=== PATIENT | female | born 1960 | race Caucasian/White ===

== ENCOUNTER 2019-06-07 06:17 | Day surgery (SDC) ==
[2019-05-31 09:52] LABS: URINE SOURCE CLEAN CATCH
--- NOTE | 2019-05-31 09:53 | EKG Report ---
Test Performed on : 05/31/2019 09:32:17 AM Test Reason : PAT Blood Pressure : / mmHG Vent. Rate : 069 BPM Atrial Rate : 069 BPM P-R Int : 116 ms QRS Dur : 088 ms QT Int : 380 ms P-R-T Axes : 036 051 -10 degrees QTc Int : 407 ms Normal sinus rhythm. Low voltage QRS Nonspecific T wave abnormality Abnormal ECG When compared with ECG of 18-AUG-2017 09:25, No significant change was found Confirmed by Lore Figueroa MD ([id number]) on 05/31/2019 12:42:11 PM
[2019-05-31 10:29] LABS: BILIRUBIN URINE NEGATIVE (NEGATIVE); BLOOD URINE TRACE (NEGATIVE); COLOR STRAW; GLUCOSE URINE NEGATIVE (NEGATIVE); KETONE URINE NEGATIVE (NEGATIVE); LEUKOCYTES URINE NEGATIVE (NEGATIVE); NITRITE URINE NEGATIVE (NEGATIVE); PROTEIN URINE NEGATIVE (NEGATIVE); SP GRAVITY URINE 1.006; TURBIDITY URINE CLEAR (CLEAR); UR EPITHELIAL CELLS <10 /HPF (<10); URINE BACTERIA NEGATIVE /HPF; URINE RBC <10 /HPF (<10); URINE WBC <10 /HPF (<10); UROBILINOGEN URINE NORMAL (NORMAL)
[2019-05-31 10:32] LABS: BASO# 0.03 X1000 (0.0-0.2); BASO% 0.4 % (0.0-0.8); EOS# 0.26 X1000 (0.0-0.7); EOS% 3.7 % (0.0-10.0); HEMATOCRIT 44.8 % (37.0-47.0); HEMOGLOBIN 15.1 g/dL (12.0-16.0); INR 0.91; LYMPH# 2.73 X1000 (1.2-3.4); LYMPH% 38.8 % (20.5-51.1); MCH 31.7 PG (27-31); MCHC 33.7 g/dL (33-37); MCV 94.1 FL (81-99); MONO# 0.49 X1000 (0.11-0.59); MPV 11.2 FL (7.4-10.4); NEUT# 3.53 X1000 (1.4-6.5); NEUT% 50.1 % (42.2-75.2); PLT 252 X1000 (130-400); PROTIME 12.3 Seconds (11.0-16.0); RBC 4.76 XMIL (4.2-5.4); RDW 14.2 % (11.5-14.5); WBC 7.04 X1000 (4.8-10.8)
[2019-05-31 10:33] LABS: PTT 27.1 Seconds (22.3-41.8)
[2019-05-31 10:34] LABS: HEMOGLOBIN A1C 5.4 % (4.8-6.0)
[2019-05-31 10:43] LABS: AGAP 13; BUN 13 mg/dL (8-22); CALCIUM 9.9 mg/dL (8.8-10.2); CHLORIDE 104 mmol/L (98-107); COSMO 288; CREATININE 0.6 mg/dL (0.5-0.9); ESTIMATED GFR > 60; GLUCOSE 83 mg/dL (70-104); POTASSIUM 3.8 mmol/L (3.5-5.1); SODIUM 145 mmol/L (136-145); TCO2 28 mmol/L (25-35)
[2019-06-07] MEDS ORDERED: SODIUM CHLORIDE 0.9% ONE (06:37)
[2019-06-07] MEDS ORDERED: MARCAINE 0.25% PF ONE (06:37)
[2019-06-07] MEDS ORDERED: CYKLOKAPRON 1,000 MG/NS 2,000 MG/200 ML IVPB ONE (06:37)
[2019-06-07] MEDS ORDERED: TORADOL ONE (06:37)
[2019-06-07] MEDS ORDERED: DURAMORPH ONE (06:37)
[2019-06-07] MEDS ORDERED: VANCOMYCIN ONE (06:37)
[2019-06-07] MEDS ORDERED: EXPAREL 1.3% ONE (06:38)
[2019-06-07] MEDS ORDERED: NEOSPORIN G.U. IRRIGANT ONE (06:38)
[2019-06-07] MEDS ORDERED: COLACE ONE (06:44)
[2019-06-07] MEDS ORDERED: REGLAN ONE (06:45)
[2019-06-07] MEDS ORDERED: LR 1,000 ML ONE (06:45)
[2019-06-07] MEDS ORDERED: KEFZOL 1 GM/D5W 1 GM/50 ML IVPB ONE (06:45)
[2019-06-07] MEDS ORDERED: CELEBREX ONE (06:45)
[2019-06-07] MEDS ORDERED: PEPCID ONE (06:45)
[2019-06-07] MEDS ORDERED: LYRICA ONE (06:45)
[2019-06-07] MEDS ORDERED: XYLOCAINE-MPF 2% ONE (07:50)
[2019-06-07] MEDS ORDERED: DECADRON ONE ×2 (07:50→09:10)
[2019-06-07] MEDS ORDERED: DIPRIVAN 1% ONE (07:50)
[2019-06-07] MEDS ORDERED: ZOFRAN ONE (07:50)
[2019-06-07] MEDS ORDERED: FENTANYL ONE ×2 (07:54→10:09)
[2019-06-07] MEDS ORDERED: VERSED ONE (08:00)
[2019-06-07] MEDS ORDERED: OFIRMEV 1000 MG/ISOTONIC SOLN 1,000 MG/100 ML BOTTLE ONE (09:10)
[2019-06-07] MEDS ORDERED: ROBINUL ONE (09:35)
[2019-06-07] MEDS ORDERED: LOPRESSOR ONE (10:30)
[2019-06-07 10:34] LABS: URINE SOURCE CATH
[2019-06-07 10:37] LABS: BILIRUBIN URINE NEGATIVE (NEGATIVE); BLOOD URINE NEGATIVE (NEGATIVE); COLOR YELLOW; GLUCOSE URINE NEGATIVE (NEGATIVE); KETONE URINE NEGATIVE (NEGATIVE); LEUKOCYTES URINE NEGATIVE (NEGATIVE); NITRITE URINE NEGATIVE (NEGATIVE); PROTEIN URINE NEGATIVE (NEGATIVE); SP GRAVITY URINE 1.021; TURBIDITY URINE CLEAR (CLEAR); UROBILINOGEN URINE NORMAL (NORMAL)
[2019-06-07 10:38] LABS: UR EPITHELIAL CELLS <10 /HPF (<10); URINE BACTERIA NEGATIVE /HPF; URINE RBC <10 /HPF (<10); URINE WBC <10 /HPF (<10)
[2019-06-07] MEDS ORDERED: OXY IR PO PRN (12:30)
[2019-06-07] MEDS ORDERED: ZOFRAN ODT PO PRN (12:30)
[2019-06-07] MEDS ORDERED: ZOFRAN IV PRN (12:30)
[2019-06-07] MEDS ORDERED: MORPHINE IV PRN ×3 (12:30)
[2019-06-07] MEDS: DILAUDID ONE ×3 (12:31→12:50)
[2019-06-07] MEDS ORDERED: NS 1,000 ML ONE (12:31)
[2019-06-07] MEDS ORDERED: OXY IR ONE (13:06)
--- NOTE | 2019-06-07 13:11 | OPERATIVE NOTE ---
PROCEDURE DATE: 06/07/2019 PREOPERATIVE DIAGNOSIS: Left unicompartmental total knee arthroplasty failure with degenerative joint disease of the lateral and patellofemoral compartments. POSTOPERATIVE DIAGNOSIS: Left unicompartmental total knee arthroplasty failure with degenerative joint disease of the lateral and patellofemoral compartments. PROCEDURE: Revision of left unicompartmental knee to a total knee arthroplasty. ANESTHESIA: General. SURGEON: Venancio Cheng MD EMERGENCY MANAGEMENT SPECIALIST: MAXIMO Voss, was present throughout the case, and his assistance was necessary for successful completion of the case. BLOOD LOSS: Minimal. TOURNIQUET TIME: Approximately an hour and a half. DESCRIPTION OF PROCEDURE: The patient brought to the operative suite and placed in supine position. After successful administration of general anesthesia, a well-padded tourniquet was placed on the left proximal thigh and the left lower extremity was prepped and draped in the usual sterile fashion. Leg was exsanguinated. Tourniquet insufflated to 350 torr. A longitudinal incision was made beginning superior pole of the patella and extended distally to the tibial tuberosity. A medial capsulotomy was performed, removing the previous sutures, and the medial capsule was elevated off the medial tibial plateau. The scar tissue deep to the patellar tendon was removed, as well as along the medial border, and then the knee was flexed. The lateral meniscus and ACL and PCL were excised. A drill was entered into the center of the femur. A distal cutting block was pinned in place. Distal cut was made with the oscillating saw except for where the medial unicondylar knee was. This was sawed by hand and with osteotome. Once it was removed, the distal end of the femur was recut to flush with the lateral side at 6 degrees of valgus angle. Once this was accomplished, attention was directed to the tibia. The saw was used along the edges of the prosthesis and then osteotomes until we were able to remove the medial prosthesis and then the extramedullary guide was placed and taking just 1 mm so off the medial side. The tibial cutting block was pinned in place and the lateral condyle and the medial condyle were smoothed with a saw back to flat perpendicular proximal tibia. Once this was achieved, we made sure that all the ACL, PCL, medial meniscus, and lateral meniscus tissues were excised. The extension gap was found to be 12. Therefore, we set the flexion gap at 12. The femur sized to a size 4. Therefore, we used a 4 sizing guide. Once we set the rotation by balancing the gaps and flexion at 90 degrees, we were able to pin the cutting block and then the anterior cuts, chamfer cuts, and posterior condylar cuts were made with the oscillating saw. The box cutting block was pinned in place. Box cut was made with the oscillating saw and then the posterior condyle osteophytes were removed with the curved osteotome and a rongeur. Attention was then directed to the tibia. It was sized to a size 4. A size 4 guide was used for the fin punch. The tibial trial, femoral trial, and 12 mm articular insert were placed, taken through range of motion, and found to have excellent alignment, balancing, and range of motion. Attention was directed to the patella and 9 mm of the articular surface of patella was removed with the oscillating saw. Patella was sized to size 35. A size 35 guide was used to drill peg holes. The lateral facet was chamfered 30 to 45 degrees. Patellar trial was placed, taken through range of motion, and found to have excellent patellar tracking. All trials were then removed. The knee was copiously irrigated and dried, being certain that all bone debris was removed. The tibial component, femoral component, and patellar component were cemented into place, excess cement being removed with a Masury. Once the cement had hardened, excess cement was again removed with an osteotome. Knee was again copiously irrigated and dried, being certain all bone and cement debris was removed. The trial articular insert was removed. The knee was copiously infiltrated with Exparel, including the posterior capsule, anterior capsule, medial and lateral collateral ligaments, anterior musculature, and subcutaneous tissue. The tourniquet was deflated. Hemostasis was obtained with electrocautery. The definitive 12 mm articular insert was placed. A drain was placed exiting superolaterally and buried in the lateral gutter. The knee was again copiously irrigated with normal saline containing irrigant and Vashe irrigation. The medial arthrotomy was closed with #1 Vicryl. The skin edge was approximated with 2-0 Vicryl. Skin was closed with Prineo and a sterile dressing was applied. The patient tolerated the procedure well without complication. At the end the procedure, all counts were correct x2. The patient was transferred to the recovery room in stable condition. cc: Venancio Cheng MD
[2019-06-07] MEDS: TYLENOL PO SCH ×2 (18:05→21:50)
[2019-06-07] MEDS: ULTRAM PO SCH ×2 (18:05→21:48)
[2019-06-07] MEDS: KEFZOL 1 GM/D5W 1 GM/50 ML IVPB IV SCH (18:08)
[2019-06-07] MEDS ORDERED: ZANTAC PO SCH (21:00)
[2019-06-07] MEDS ORDERED: PAXIL PO SCH (21:00)
[2019-06-07] MEDS: PERIDEX MT SCH (21:48)
[2019-06-07] MEDS: LOPID PO SCH (21:49)
[2019-06-07] MEDS: LYRICA PO SCH (21:50)
[2019-06-07] MEDS: COLACE PO SCH (21:50)
[2019-06-07] MEDS: NS 1,000 ML IV SCH (21:51)
[2019-06-07] MEDS: OXY IR PO PRN (23:46)
[2019-06-08] MEDS: KEFZOL 1 GM/D5W 1 GM/50 ML IVPB IV SCH (02:25)
[2019-06-08] MEDS: NS 1,000 ML IV SCH (02:26)
[2019-06-08] MEDS: TYLENOL PO SCH ×2 (03:45→10:51)
[2019-06-08] MEDS: ULTRAM PO SCH ×2 (03:46→10:48)
[2019-06-08 06:13] LABS: HEMATOCRIT 31.7 % (37.0-47.0); HEMOGLOBIN 10.4 g/dL (12.0-16.0)
[2019-06-08 06:23] LABS: AGAP 7; BUN 12 mg/dL (8-22); CALCIUM 8.5 mg/dL (8.8-10.2); CHLORIDE 105 mmol/L (98-107); COSMO 277; CREATININE 0.6 mg/dL (0.5-0.9); ESTIMATED GFR > 60; GLUCOSE 123 mg/dL (70-104); POTASSIUM 4.2 mmol/L (3.5-5.1); SODIUM 138 mmol/L (136-145); TCO2 26 mmol/L (25-35)
[2019-06-08 07:54] VITALS: BP 105/65
[2019-06-08] MEDS ORDERED: ASPIRIN PO SCH (09:00)
[2019-06-08] MEDS ORDERED: PEPCID PO SCH (09:00)
[2019-06-08] MEDS ORDERED: DECADRON IV ONE (09:00)
[2019-06-08] MEDS ORDERED: CELEBREX PO SCH (09:00)
[2019-06-08] MEDS ORDERED: HYDROCHLOROTHIAZIDE PO SCH (09:00)
--- NOTE | 2019-06-08 09:41 | DISCHARGE SUMMARY ---
ADMISSION DATE: 06/07/2019 DISCHARGE DATE: 06/08/2019 DISCHARGE DIAGNOSIS: Left knee failed unicompartmental total knee arthroplasty with degenerative joint disease in the lateral and patellofemoral compartments, status post revision to left total knee arthroplasty. DISCHARGE MEDICATIONS: See discharge medication list. DISPOSITION: The patient discharged to home health with instructions for home health physical therapy. Instructed to return for any signs or symptoms of infection or deep venous thrombosis. Return to see Dr. Cheng next . HOSPITAL COURSE: On the day of admission patient underwent a left total knee arthroplasty. Her postoperative course was unremarkable. At discharge, she is afebrile, tolerating a regular diet, ambulating well with physical therapy. Her wound is clean, dry, intact without sign of infection. She is discharged home in stable condition with instructions to follow up as described above. cc: Venancio Cheng MD
[2019-06-08] MEDS: LOPID PO SCH (10:46)
[2019-06-08] MEDS: PERIDEX MT SCH (10:46)
[2019-06-08] MEDS: COLACE PO SCH (10:46)
[2019-06-08] MEDS: LYRICA PO SCH (10:47)
[2019-06-08] MEDS: OXY IR PO PRN (10:48)
== END 2019-06-08 11:46 | disposition home or self-care (01) ==
LOC: PAT 06:17 → OPS 06:17 → 4N 06:17 → OPS 06-08 11:46
PROVIDERS: ATTEND Orthopaedic Surgery